=== PATIENT | female | born 1965 | race Caucasian/White ===

== ENCOUNTER → 2017-02-07 | Outpatient (CLI) | payer MEDICARE, BC | LOC: EMI 13:50 | DX: G35 Multiple sclerosis (principal); R90.89 Other abnormal findings on diagnostic imaging of central nervous system | CPT/HCPCS: 70553; A9577; J7050 ==

== ENCOUNTER → 2020-12-13 | Outpatient (CLI) | payer MEDICARE, BC | LOC: EMI 12-06 10:00 | DX: G35 Multiple sclerosis (principal); R90.82 White matter disease, unspecified; M50.322 Other cervical disc degeneration at C5-C6 level | CPT/HCPCS: 70553; 72156; A9577 ==